=== PATIENT | female | born 1980 | race Caucasian/White ===

== ENCOUNTER 2022-08-24 05:14 | Emergency (ER) | payer BC, OTHER ==
[2022-08-24 05:21] VITALS: TEMP 98.9
[2022-08-24] MEDS ORDERED: SODIUM CHLORIDE 0.9% 1,000 ML IV STA (06:06)
[2022-08-24] MEDS ORDERED: SODIUM CHLORIDE 0.9% 500 ML 500 ML IV STA (06:06)
[2022-08-24] MEDS ORDERED: ONDANSETRON 4 MG/2 ML VIAL IVP STA (06:06)
[2022-08-24 06:36] LABS: Basophils % (A) 0 %; Eosinophils # (A) 0.1 k/uL (0-0.7); Eosinophils % (A) 1 %; HCT 38.6 % (34.0-46.0); HGB 13.2 gm/dL (11.4-16.0); Lymphocytes # (A) 1.2 k/uL (1.0-4.8); Lymphocytes % (A) 10 %; MCH 29.5 pg (25.0-35.0); MCHC 34.2 g/dL (31.0-37.0); MCV 86.4 fL (80.0-100.0); Monocytes # (A) 0.5 k/uL (0-1.0); Monocytes % (A) 4 %; Neutrophils # (A) 9.7 k/uL (1.3-7.7); Neutrophils % (A) 83 %; Platelet Count 184 k/uL (150-450); RBC 4.47 m/uL (3.80-5.40); RDW 13.8 % (11.5-15.5); WBC 11.7 k/uL (3.8-10.6)
[2022-08-24 06:52] LABS: ALT 29 U/L (4-34); AST 14 U/L (14-36); African American GFR (CKD) >90 (>60 ml/min/1.73 sqM); Alkaline Phosphatase 65 U/L (38-126); Amylase 68 U/L (30-110); Anion Gap 12 mmol/L; Blood Urea Nitrogen 12 mg/dL (7-17); Calcium 8.7 mg/dL (8.4-10.2); Carbon Dioxide 23 mmol/L (22-30); Chloride 102 mmol/L (98-107); Glucose 107 mg/dL (74-99); Lipase 121 U/L (23-300); Non-African American GFR(CKD) >90 (>60 ml/min/1.73 sqM); Sodium 137 mmol/L (137-145); Total Bilirubin 0.7 mg/dL (0.2-1.3); Total Protein 6.5 g/dL (6.3-8.2)
[2022-08-24 06:57] LABS: Appearance,Urine Cloudy (Clear); Bacteria,Urine Rare /hpf; Bilirubin,Urine Negative (Negative); Blood,Urine Negative (Negative); Budding Yeast,Urine Few /hpf; Color,Urine Yellow; Glucose,Urine (UA) Negative (Negative); Ketones,Urine 1+ (Negative); Leukocyte Esterase,Urine Large (Negative); Mucus,Urine Few /hpf; Nitrite,Urine Negative (Negative); Protein,Urine 1+ (Negative); RBC,Urine 7 /hpf (0-5); Specific Gravity,Urine 1.024 (1.001-1.035); Squamous Epithelial Cell,Urine 37 /hpf (0-4); Urobilinogen,Urine <2.0 mg/dL (<2.0); WBC,Urine 39 /hpf (0-5)
[2022-08-24 07:29] VITALS: RESP 18
[2022-08-24] MEDS ORDERED: KETOROLAC 15 MG/ML 1 ML VIAL IVP STA (07:30)
--- NOTE | 2022-08-24 07:33 | ED ---
Abdominal Pain HPI - General Chief Complaint: Abdominal Pain Stated Complaint: abd pain Time Seen by Provider: 08/24/22 06:06 Source: patient, RN notes reviewed Mode of arrival: ambulatory Limitations: no limitations - History of Present Illness Initial Comments: 42-year-old female presents emergency Department chief complaint of left lower quadrant abdominal pain. Patient states that it started recently overnight. Patient states that nausea without vomiting no dysuria but has had some urinary frequency. Denies fevers or chills no chest pain or shortness of breath states that nothing really makes the pain feel better or worse at this time. No history kidney stone patient's had prior cholecystectomy no other abdominal surgeries denies any chance . - Related Data Previous Rx's Medication Instructions Recorded Amoxic-Pot Clav 875-125Mg 1 tab PO Q12HR #20 tab 08/24/22 [Augmentin 875-125] Ibuprofen [Motrin] 600 mg PO Q8HR PRN #20 tab 08/24/22 Allergies Allergy/AdvReac Type Severity Reaction Status Date / Time No Known Allergies Allergy Verified 08/24/22 05:21 Review of Systems ROS Statement: Those systems with pertinent positive or pertinent negative responses have been documented in the HPI. ROS Other: All systems not noted in ROS Statement are negative. Past Medical History Past Medical History: No Reported History History of Any Multi-Drug Resistant Organisms: None Reported Past Surgical History: No Surgical Hx Reported Past Psychological History: No Psychological Hx Reported Smoking Status: Never smoker Past Alcohol Use History: None Reported Past Drug Use History: None Reported General Exam Limitations: no limitations General appearance: alert, in no apparent distress Head exam: Present: atraumatic, normocephalic, normal inspection Eye exam: Present: normal appearance, PERRL, EOMI. Absent: scleral icterus, conjunctival injection, periorbital swelling Neck exam: Present: normal inspection. Absent: tenderness, meningismus, lymphadenopathy Respiratory exam: Present: normal lung sounds bilaterally. Absent: respiratory distress, wheezes, rales, rhonchi, stridor Cardiovascular Exam: Present: normal rhythm, tachycardia, normal heart sounds. Absent: systolic murmur, diastolic murmur, rubs, gallop, clicks GI/Abdominal exam: Present: soft, tenderness, normal bowel sounds. Absent: distended, guarding, rebound, rigid Back exam: Present: CVA tenderness (L). Absent: CVA tenderness (R) Neurological exam: Present: alert Skin exam: Present: warm, dry, intact, normal color. Absent: rash Course Vital Signs 08/24/22 08/24/22 05:18 07:28 Temperature 98.9 F Pulse Rate 129 H 103 H Respiratory 20 18 Rate Blood Pressure 119/80 100/70 O2 Sat by Pulse 99 96 Oximetry Medical Decision Making - Medical Decision Making 42-year-old presented from for left lower quadrant abdominal pain. Patient pain is very localized. Patient CT shows evidence of moderate diverticulitis with no perforation or abscess formation patient has mild leukocytosis. Patient was given offered admission for IV antibiotics, pain control versus going home. Patient does feel comfortable being discharged clear liquid diet, oral antibiotics. Return parameters were discussed. - Lab Data Result diagrams: 08/24/22 06:13 08/24/22 06:13 Lab Results 08/24/22 08/24/22 08/24/22 Range/Units 06:13 06:13 06:13 WBC 11.7 H (3.8-10.6) k/uL RBC 4.47 (3.80-5.40) m/uL Hgb 13.2 (11.4-16.0) gm/dL Hct 38.6 (34.0-46.0) % MCV 86.4 (80.0-100.0) fL MCH 29.5 (25.0-35.0) pg MCHC 34.2 (31.0-37.0) g/dL RDW 13.8 (11.5-15.5) % Plt Count 184 (150-450) k/uL MPV 10.0 Neutrophils % 83 % Lymphocytes % 10 % Monocytes % 4 % Eosinophils % 1 % Basophils % 0 % Neutrophils # 9.7 H (1.3-7.7) k/uL Lymphocytes # 1.2 (1.0-4.8) k/uL Monocytes # 0.5 (0-1.0) k/uL Eosinophils # 0.1 (0-0.7) k/uL Basophils # 0.0 (0-0.2) k/uL Sodium 137 (137-145) mmol/L Potassium 4.0 (3.5-5.1) mmol/L Chloride 102 (98-107) mmol/L Carbon Dioxide 23 (22-30) mmol/L Anion Gap 12 mmol/L BUN 12 (7-17) mg/dL Creatinine 0.75 (0.52-1.04) mg/dL Est GFR (CKD-EPI)AfAm >90 (>60 ml/min/1.73 sqM) Est GFR (CKD-EPI)NonAf >90 (>60 ml/min/1.73 sqM) Glucose 107 H (74-99) mg/dL Plasma Lactic Acid Sen 0.8 (0.7-2.0) mmol/L Calcium 8.7 (8.4-10.2) mg/dL Total Bilirubin 0.7 (0.2-1.3) mg/dL AST 14 (14-36) U/L ALT 29 (4-34) U/L Alkaline Phosphatase 65 (38-126) U/L Total Protein 6.5 (6.3-8.2) g/dL Albumin 4.0 (3.5-5.0) g/dL Amylase 68 (30-110) U/L Lipase 121 (23-300) U/L Urine Color Urine Appearance (Clear) Urine pH (5.0-8.0) Ur Specific [place] (1.001-1.035) Urine Protein (Negative) Urine Glucose (UA) (Negative) Urine Ketones (Negative) Urine Blood (Negative) Urine Nitrite (Negative) Urine Bilirubin (Negative) Urine Urobilinogen (<2.0) mg/dL Ur Leukocyte Esterase (Negative) Urine RBC (0-5) /hpf Urine WBC (0-5) /hpf Urine WBC Clumps (None) /hpf Ur Squamous Epith Cells (0-4) /hpf Urine Bacteria (None) /hpf Urine Mucus (None) /hpf Urine Yeast (Budding) (None) /hpf Urine HCG, Qual (Not Detectd) 08/24/22 08/24/22 Range/Units 06:20 06:20 WBC (3.8-10.6) k/uL RBC (3.80-5.40) m/uL Hgb (11.4-16.0) gm/dL Hct (34.0-46.0) % MCV (80.0-100.0) fL MCH (25.0-35.0) pg MCHC (31.0-37.0) g/dL RDW (11.5-15.5) % Plt Count (150-450) k/uL MPV Neutrophils % % Lymphocytes % % Monocytes % % Eosinophils % % Basophils % % Neutrophils # (1.3-7.7) k/uL Lymphocytes # (1.0-4.8) k/uL Monocytes # (0-1.0) k/uL Eosinophils # (0-0.7) k/uL Basophils # (0-0.2) k/uL Sodium (137-145) mmol/L Potassium (3.5-5.1) mmol/L Chloride (98-107) mmol/L Carbon Dioxide (22-30) mmol/L Anion Gap mmol/L BUN (7-17) mg/dL Creatinine (0.52-1.04) mg/dL Est GFR (CKD-EPI)AfAm (>60 ml/min/1.73 sqM) Est GFR (CKD-EPI)NonAf (>60 ml/min/1.73 sqM) Glucose (74-99) mg/dL Plasma Lactic Acid Sen (0.7-2.0) mmol/L Calcium (8.4-10.2) mg/dL Total Bilirubin (0.2-1.3) mg/dL AST (14-36) U/L ALT (4-34) U/L Alkaline Phosphatase (38-126) U/L Total Protein (6.3-8.2) g/dL Albumin (3.5-5.0) g/dL Amylase (30-110) U/L Lipase (23-300) U/L Urine Color Yellow Urine Appearance Cloudy H (Clear) Urine pH 6.0 (5.0-8.0) Ur Specific [place] 1.024 (1.001-1.035) Urine Protein 1+ H (Negative) Urine Glucose (UA) Negative (Negative) Urine Ketones 1+ H (Negative) Urine Blood Negative (Negative) Urine Nitrite Negative (Negative) Urine Bilirubin Negative (Negative) Urine Urobilinogen <2.0 (<2.0) mg/dL Ur Leukocyte Esterase Large H (Negative) Urine RBC 7 H (0-5) /hpf Urine WBC 39 H (0-5) /hpf Urine WBC Clumps Many H (None) /hpf Ur Squamous Epith Cells 37 H (0-4) /hpf Urine Bacteria Rare H (None) /hpf Urine Mucus Few H (None) /hpf Urine Yeast (Budding) Few H (None) /hpf Urine HCG, Qual Not Detected (Not Detectd) Disposition Clinical Impression: Acute diverticulitis Disposition: HOME SELF-CARE Condition: Stable Instructions (If sedation given, give patient instructions): Diverticulitis (ED), Diverticulitis Diet (ED) Additional Instructions: Please return to the Emergency Department if symptoms worsen or any other concerns. Prescriptions: Amoxic-Pot Clav 875-125Mg [Augmentin 875-125] 1 tab PO Q12HR #20 tab Ibuprofen [Motrin] 600 mg PO Q8HR PRN #20 tab PRN Reason: Pain Is patient prescribed a controlled substance at d/c from ED?: No Referrals: Nonstaff,Physician [Primary Care Provider] - 1-2 days Time of Disposition: 07:54
--- NOTE | 2022-08-24 07:40 | CT ---
EXAMINATION TYPE: CT abdomen pelvis wo con DATE OF EXAM: 08/24/2022 HISTORY: LLQ PAIN CT DLP: 588.7 mGycm. Automated Exposure Control for Dose Reduction was Utilized. TECHNIQUE: CT scan of the abdomen and pelvis is performed without oral or IV contrast. COMPARISON: NONE FINDINGS: Within the limitations of a non-contrast study, the following observations are made. LUNG BASES: Scattered small bilateral pulmonary nodules are seen measuring up to 6 mm in size. Noneme rgent follow-up advised. LIVER/GB: Cholecystectomy clips are seen. PANCREAS: No significant abnormality is seen. SPLEEN: No significant abnormality is seen. ADRENALS: No significant abnormality is seen. KIDNEYS: No renal calculi or hydronephrosis is present bilaterally. BOWEL: Slightly suboptimal evaluation without enteric contrast. No suspicious small or large bowel di latation is seen. Normal appearing appendix ascending from cecum lateral aspect right abdomen. Divert icula in the left and sigmoid colon with focal moderate to severe wall thickening left mid to distal colon having moderate to severe ill-defined fluid and fat stranding. No free air. No well-formed flui d collection or abscess identified. Slightly redundant sigmoid colon. GENITAL ORGANS: Slightly retroflexed uterus. LYMPH NODES: No greater than 1cm abdominal or pelvic lymph nodes are appreciated. OSSEOUS STRUCTURES: Mild disc space narrowing with vacuum disc phenomenon lumbosacral junction. OTHER: No significant additional abnormality is seen. IMPRESSION: CT findings consistent with moderate to severe but uncomplicated acute diverticulitis lef t mid to lower abdomen centered distal left colon as detailed above.
[2022-08-24] MEDS ORDERED: ACET/COD 300 MG/30 MG STARTER PACK 6 TAB BTL PO STA (07:54)
[2022-08-24] MEDS ORDERED: cefTRIAXone IN SWFI 1,000 MG/10 ML SYRINGE IVP STA (07:57)
[2022-08-24 09:17] VITALS: BP 107/81; PULSE 93
== END 2022-08-24 09:17 | disposition home or self-care (01) ==
LOC: EC 05:14
DX: K57.92 Diverticulitis of intestine, part unspecified, without perforation or abscess without bleeding (principal)
CPT/HCPCS: 36415; 80053; 82150; 83605; 83690; 85025; 81001; 81025; 87086; 74176; 99284; 96374; 96375 ×2; 96361 ×2; J2405; J0696; J1885

== ENCOUNTER → 2023-06-13 | Outpatient (CLI) | payer BC, OTHER ==
[2023-06-13 15:41] LABS: Basophils # (A) 0.02 X 10*3/uL (0.00-0.10); Basophils % (A) 0.2 %; Eosinophils # (A) 0.09 X 10*3/uL (0.04-0.35); Eosinophils % (A) 0.8 %; HCT 39.6 % (37.2-46.3); HGB 13.3 d/dL (12.0-15.0); Lymphocytes # (A) 1.98 X 10*3/uL (0.90-5.00); Lymphocytes % (A) 17.8 %; MCH 30.1 pg (27.0-32.0); MCHC 33.6 d/dL (32.0-37.0); MCV 89.6 FL (80.0-97.0); Mean Platelet Volume 12.4 FL (9.5-12.2); Monocytes # (A) 0.71 X 10*3/uL (0.20-1.00); Monocytes % (A) 6.4 %; NRBC Per 100 WBC 0 X 10*3/uL (0.00-0.01); Neutrophils # (A) 8.26 X 10*3/uL (1.80-7.70); Neutrophils % (A) 74.2 %; Platelet Count 192 X 10*3/uL (140-440); RBC 4.42 X 10*6/uL (4.10-5.20); RDW 14.8 % (11.5-14.5); WBC 11.13 X 10*3/uL (4.50-10.00)
[2023-06-13 15:53] LABS: Carbon Dioxide 23.6 mmol/L (21.6-31.8); Chloride 104 mmol/L (96-109); Glucose 87 mg/dL (70-110); Potassium 4.1 mmol/L (3.5-5.5); Sodium 138 mmol/L (135-145)
== END | disposition home or self-care (01) ==
LOC: LABPAT 10:37
PROVIDERS: ATTEND Obstetrics & Gynecology
DX: Z01.812 Encounter for preprocedural laboratory examination (principal); N94.6 Dysmenorrhea, unspecified; N93.8 Other specified abnormal uterine and vaginal bleeding; N80.00 Endometriosis of the uterus, unspecified
CPT/HCPCS: 36415; 80051; 82565; 82947; 84520; 85025; 86850; 86900; 86901; 87086

== ENCOUNTER 2023-06-21 05:33 | Day surgery (SDC) | payer BC, OTHER ==
[2023-06-14 10:10] VITALS: BMI 29.9
--- NOTE | 2023-06-20 10:25 | P.HPIHPCON ---
History of Present Illness H&P Date: 06/20/23 Chief Complaint: Abnormal uterine bleeding Ms. Luo is a 43 year old presenting for surgical management of abnormal uterine bleeding, adenomyosis, and dysmenorrhea. She had the Mirena IUD placed November of 2022 for heavy bleeding and still continues to have heavy pe riods every 2 weeks that can often last for 10 days. She also has severe pain during periods. Additionally, Ms. Luo has been in surveillance for a 4 centimeter complex right adnexal mass for which OVA-1 testing was low risk for malignancy. Periods have been this way for a while, for which she has previously seen Dr. Chung who did an endometrial biopsy in 2011 showing proliferative endometrial tissue negative for malignancy. Consent for Procedure: I have explained the operation/procedure to the patient, including the risks, benefits, side effects, alternative therapies (including not receiving the proposed treatment or service), the likelihood of the patient achieving his/her goals, and potential recuperation problems for the procedure/sedation/analgesia, as well as any blood products, if indicated. I also explained to the patient the risks, benefits and side effects of the alternatives, as well as the risks related to not receiving the proposed procedure, care, treatment, or services. Past Medical History Past Medical History: Cancer Additional Past Medical History / Comment(s): HEAVY, PAINFUL MENSES. CYST ON RT OVARY, SKIN CANCER History of Any Multi-Drug Resistant Organisms: None Reported Past Surgical History: Cholecystectomy Additional Past Surgical History / Comment(s): IUD, SKIN CA REMOVED FROM NOSE Past Anesthesia/Blood Transfusion Reactions: No Reported Reaction Smoking Status: Never smoker - Past Family History Mother Family Medical History: Cancer Sister(s) Family Medical History: Cancer Medications and Allergies Home Medications Medication Instructions Recorded Confirmed Type Liraglutide [Saxenda] 0.6 mg SQ DAILY 06/14/23 06/14/23 History Sertraline [Zoloft] 50 mg PO DAILY@1800 06/14/23 06/14/23 History busPIRone HCl [Buspar] 10 mg PO DAILY PRN 06/14/23 06/14/23 History Allergies Allergy/AdvReac Type Severity Reaction Status Date / Time No Known Allergies Allergy Verified 06/14/23 09:59 Surgical - Exam Focused physical exam is performed. This is a healthy-appearing female in no apparent distress. Breathing is non-labored. Abdomen is soft, non-tender, non- distended. Extremities are non-tender and non-edematous. Assessment and Plan Assessment: 43 year old with AUB-A, dysmenorrhea, and 4 centimeter complex right adneal mass (OVA-1 testing low risk for malignancy) who presents for surgical management with Robotic Assisted Total Laparoscopic Hsyterectomy, Bilateraly Salpingectomy, Right Cystectomy, and Cystoscopy with Possible Bilateral Oophorectomy, Possible Laparotomy. Plan: Risks, benefits, and alternatives to Robotic Assisted Total Laparoscopic Hsyterectomy, Bilateraly Salpingectomy, Right Cystectomy, and Cystoscopy with Possible Bilateral Oophorectomy, Possible Laparotomy were discussed with the patient including risk of bleeding (patient willing to accept a blood- transfusion if necessary), infection, damage to surrounding structures including bladder/bowels/ureters, and post-operative VTE. The patient understands these risks and desires to proceed with surgery. Time with Patient: Less than 30 (10 minutes)
[2023-06-21] MEDS ORDERED: LACTATED RINGERS 1,000 ML IV ONE (05:45)
[2023-06-21] MEDS ORDERED: ONDANSETRON 4 MG/2 ML VIAL ONE (05:58)
[2023-06-21 06:17] LABS: Glucose,Whole Blood 83 mg/dL (70-110)
[2023-06-21] MEDS ORDERED: DEXAMETHASONE SOD PHOSPHATE 4 MG/ML 1 ML VIAL IVP ONE (06:19)
[2023-06-21] MEDS ORDERED: LIDOCAINE 1% (10MG/ML) FOR IV START INTRADERMA PRN (06:46)
[2023-06-21] MEDS ORDERED: MIDAZOLAM 2 MG/2 ML VIAL IV PRN (06:46)
[2023-06-21] MEDS ORDERED: HYDROmorphone 0.5 MG/0.5 ML SYRINGE IVP PRN (06:46)
[2023-06-21] MEDS ORDERED: LACTATED RINGERS 1,000 ML IV SCH (06:46)
[2023-06-21] MEDS ORDERED: ONDANSETRON 4 MG/2 ML VIAL IVP ONE (06:46)
[2023-06-21] MEDS ORDERED: DEXAMETHASONE SOD PHOSPHATE 4 MG/ML 1 ML VIAL IV ONE (06:46)
[2023-06-21] MEDS ORDERED: MIDAZOLAM 2 MG/2 ML VIAL IVP ONE (07:21)
[2023-06-21] MEDS ORDERED: fentaNYL (PF) 50 MCG/ML 2 ML AMP ONE (07:35)
[2023-06-21] MEDS ORDERED: GLYCOPYRROLATE 0.2 MG/ML 2 ML VIAL ONE (07:35)
[2023-06-21] MEDS ORDERED: SODIUM CHLORIDE 0.9% (PF) 10 ML VIAL ONE (07:35)
[2023-06-21] MEDS ORDERED: ACETAMINOPHEN IV (For NPO) 1,000 MG/100 ML VIAL ONE (07:35)
[2023-06-21] MEDS ORDERED: LIDOCAINE 2% INJ 20 MG/ML (2 ML VIAL) ONE (07:35)
[2023-06-21] MEDS ORDERED: ROPIVACAINE 5 MG/ML 30 ML VIAL ONE (07:35)
[2023-06-21] MEDS ORDERED: NEOSTIGMINE 1 MG/ML 10 ML VIAL ONE (07:35)
[2023-06-21] MEDS ORDERED: ROCURONIUM 10 MG/ML (5 ML VIAL) IV ONE (07:35)
[2023-06-21] MEDS ORDERED: KETOROLAC 15 MG/ML 1 ML VIAL ONE (07:35)
[2023-06-21] MEDS ORDERED: PROPOFOL 10 MG/ML 20 ML VIAL IV ONE (07:35)
[2023-06-21] MEDS ORDERED: BUPIVACAINE (PF) 0.25% 30 ML VIAL SQ ONE (09:02)
[2023-06-21] MEDS ORDERED: SIMETHICONE 80 MG CHEWABLE PO PRN (09:17)
[2023-06-21] MEDS ORDERED: ONDANSETRON 4 MG/2 ML VIAL IVP PRN (09:17)
[2023-06-21] MEDS ORDERED: IBUPROFEN 600 MG TAB PO PRN (09:17)
--- NOTE | 2023-06-21 09:17 | P.ANPRN ---
Procedure Note - Anesthesia - Nerve Block Performed Bilateral Erector Spinae Single Time Out Performed: Yes (0720) Date of Procedure: 06/21/23 Procedure Start Time: : Procedure Stop Time: :33 Location of Patient: PreOp Indication: Acute Post-Operative Pain, Requested by Surgeon Sedation Type: Sedate with meaningful contact maintained Preparation: Sterile Prep, Sterile Dressing Position: Prone Catheter: None Needle Types: Pajunk Needle Gauge: 21 Ultrasound used to visualize needle placement: Yes Ultrasound used to observe medication spread: Yes Injectate: 0.5% Ropivacaine (see comment for volume) (20 mL of block solution injected on each side. Block solution containing 20 mL of 0.5% ropivacaine mixed with 20 ML of preservative-free normal saline.) Blood Aspirated: No Pain Paresthesia on Injection Noted: No Resistance on Injection: Normal Image Stored and Saved: Yes Events: Uneventful and Well Tolerated
--- NOTE | 2023-06-21 09:27 | P.PCN ---
Date of Procedure: 06/21/23 Preoperative Diagnosis: 1. Abnormal Uterine Bleeding 2. Adenomyosis 3. Dysmenorrhea 4. Right ovarian cyst Postoperative Diagnosis: 1. Abnormal Uterine Bleeding 2. Adenomyosis 3. Dysmenorrhea 4. Left ovarian cyst Procedure(s) Performed: Robotic Assisted Total Laparoscopic Hysterectomy, Bilateral Salpingectomy, Left Cystectomy, and Cystoscopy Implants: None Anesthesia: ELIZABETH Surgeon: Gissell Boykin Underwriting Manager #1: Ollie Strange Estimated Blood Loss (ml): 50 IV fluids (ml): 500 Urine output (ml): 100 (clear yellow) Pathology: other (cervix, uterus, bilateral fallopian tubes, left ovarian cyst wall) Condition: stable Disposition: observation Indications for Procedure: 43 year old with AUB-A, dysmenorrhea, and 4 centimeter complex right adneal mass (OVA-1 testing low risk for malignancy) who presents for surgical management with Robotic Assisted Total Laparoscopic Hsyterectomy, Bilateraly Salpingectomy, Right Cystectomy, and Cystoscopy with Possible Bilateral Oophorectomy, Possible Laparotomy. Risks, benefits, and alternatives to Robotic Assisted Total Laparoscopic Hsyterectomy, Bilateraly Salpingectomy, Right Cystectomy, and Cystoscopy with Possible Bilateral Oophorectomy, Possible Laparotomy were discussed with the patient including risk of bleeding (patient willing to accept a blood-transfusion if necessary), infection, damage to surrounding structures including bladder/bowels/ureters, and post-operative VTE. The patient understands these risks and desires to proceed with surgery. Operative Findings: Bulky, heterogenous appearing uterus. Ovarian cyst was actually found on the left, rather than the right. Decision was made to perform cystectomy on the left ovary given these findings. Otherwise, unremarkable pelvis. Normal-appearing liver. Appendix not visualized. On cystoscopy, there was no evidence of trauma or injury to the bladder wall and bilateral ureteral jets were visualized. Description of Procedure: Prior to the beginning of the procedure, the team paused to verify the patients identity, the procedure to be performed (in accordance with the consent,) and the correct side/site. The patient was positioned appropriately. All relevant images and results were properly labeled and displayed. We addressed antibiotic prophylaxis and fluids for irrigation as applicable to this patient. Any safety precautions were addressed. The patient was taken to the operating room where general anesthesia was induced without difficulty. She was then positioned in the dorsal lithotomy position in [facility]. Positioning included placing her arms at her sides. After the patient was placed in what was felt to be a neurologically safe position, deep Trendelenburg position was tested prior to the operative procedure, to ensure that she would not move on the operating table. The patient was then prepped and draped in the normal sterile fashion for a combined abdominovaginal surgery. A Tapia catheter was placed in the bladder for continuous drainage. Uterus was sounded to 9 cm. [employer] manipulator was placed in the uterus for manipulation. Attention was then placed to the abdomen. The normal length Veress needle was introduced into the abdominal cavity while tenting the abdominal wall. Low pressure was noted confirming appropriate placement. The abdomen was then insufflated to 15mmHg for the remainder of the case. The Veress needle was removed, and an 8 mm port was placed at the umbilical site under direct laparscopic visualization and there was no evidence of injury from the trocar placement. Visualization of the intraabdominal cavity showed normal pelvic anatomy without evidence of adhesions. The port sites for the remainder of the case were then measured out and placed under direct visualization. On the left side, one 8 mm robotic assist port and one 10 mm assist port were placed. On the right side, one 8 mm robotic port was placed. The [employer] robot was then brought to the operative field in a lateral docking style to the left of the patient and the robot was docked to the ports. All robotic instruments were brought into the pelvis under direct visualization with monopolar scissors in arm #3 and vessel sealer in arm #1. Bilateral ureters were visualized prior to starting the surgery. The right fallopian tube was grasped by the fimbriated end and was cauterized and cut sequentially to the level of the uterine cornua. The right uteroovarian ligement was cauterized and cut. The right round ligament was cauterized and cut. Broad ligament was opened and bladder flap created. This was repeated on the left side. The peritoneum of the bilateral broad ligaments was then taken down and monopolar cautery used to skeletonize the uterine arteries bilaterally. During the course of this dissection, the anterior leaf of the broad ligament was also taken down over the anterior aspect of the uterus and cervix to create a bladder flap. The bladder was then dissected off the cervix and upper vagina with the monopolar scissors and gentle blunt dissection. The bilateral uterine arteries were then cauterized and divided at the level of the internal cervical os. The monopolar cautery was used to incise the vaginal cuff. The uterus, along with the cervix was removed vaginally. Cuff was closed in with 0-Stratifix sutures. An additional 0-Vicryl figure of eight suture was placed along the cuff.Excellent hemostasis was noted at this time. A 70 degree cystoscopy was performed which confirmed no suture placement within the bladder, no trauma to the bladder. Good efflux was noted from both ureteric orifices. The robot was undocked from the trocars and brought out of the operative field. The remainder of the ports were removed, and the gas was allowed to escape. All skin incisions were infiltrated with lidocaine closed with 4-0 Monocryl and dermabond. Hemostasis was noted to be excellent throughout, and final sponge, instrument, and needle count was noted to be correct. The patient was moved back to the preoperative holding area in stable condition having tolerated the procedure well.
[2023-06-21 09:38] VITALS: TEMP 97
[2023-06-21 14:31] VITALS: BP 145/88; PULSE 79; RESP 18
[2023-06-22] MEDS ORDERED: ACETAMINOPHEN TAB 325 MG TAB PO PRN (09:18)
== END 2023-06-21 14:20 | disposition home or self-care (01) ==
LOC: OR 05:33
PROVIDERS: ATTEND Obstetrics & Gynecology
DX: D25.9 Leiomyoma of uterus, unspecified (principal); N83.202 Unspecified ovarian cyst, left side; N80.00 Endometriosis of the uterus, unspecified
CPT/HCPCS: 58571; 58662; 81025; 64999; 86900; 86901; 86850; 88307; J2250; J1100; J2710; J0690; J2405; J3010; J2795; J0131; J1885; J2704; J2001; J0665

== ENCOUNTER 2023-08-10 11:01 | Emergency (ER) | payer BC, OTHER ==
[2023-08-10 11:32] VITALS: RESP 18
[2023-08-10] MEDS ORDERED: BACITRACIN OINT 1 EACH PACKET TOPICAL ONE (12:32)
[2023-08-10] MEDS ORDERED: LIDOCAINE 1% INJ 10MG/ML (20 ML MDV) SQ ONE (12:32)
--- NOTE | 2023-08-10 14:15 | ED ---
General Adult HPI - General Chief complaint: Wound/Laceration Stated complaint: Lt arm injury Time Seen by Provider: 08/10/23 11:57 Source: patient Mode of arrival: ambulatory Limitations: no limitations - History of Present Illness Initial comments: 43-year-old female presents to the ED with a chief complaint of laceration. Patient states that she still he broke a picture frame this morning. States as she was cleaning the glass shards off the table glass shard fell onto her arm causing laceration to her arm. Tetanus was updated last year. No other complaints at this time. - Related Data Home Medications Medication Instructions Recorded Confirmed Liraglutide [Saxenda] 0.6 mg SQ DAILY 06/14/23 06/21/23 Sertraline [Zoloft] 50 mg PO DAILY@1800 06/14/23 06/21/23 busPIRone HCl [Buspar] 10 mg PO DAILY PRN 06/14/23 06/21/23 Previous Rx's Medication Instructions Recorded Acetaminophen Tab [Tylenol] 650 mg PO Q6H PRN #30 tab 06/21/23 Ibuprofen [Motrin] 600 mg PO Q6HR PRN #30 tab 06/21/23 oxyCODONE HCL [Roxicodone] 5 mg PO Q6HR PRN 3 Days #12 tab 06/21/23 polyethylene glycoL 3350 [Miralax] 17 gm PO DAILY PRN #527 gm 06/21/23 Allergies Allergy/AdvReac Type Severity Reaction Status Date / Time No Known Allergies Allergy Verified 08/10/23 11:29 Review of Systems ROS Statement: Those systems with pertinent positive or pertinent negative responses have been documented in the HPI. ROS Other: All systems not noted in ROS Statement are negative. Past Medical History Past Medical History: Cancer Additional Past Medical History / Comment(s): HEAVY, PAINFUL MENSES. CYST ON RT OVARY, SKIN CANCER History of Any Multi-Drug Resistant Organisms: None Reported Past Surgical History: Cholecystectomy, Hysterectomy Additional Past Surgical History / Comment(s): IUD, SKIN CA REMOVED FROM NOSE Past Anesthesia/Blood Transfusion Reactions: No Reported Reaction Past Psychological History: Anxiety, Depression Smoking Status: Never smoker Past Alcohol Use History: None Reported Past Drug Use History: Marijuana - Past Family History Mother Family Medical History: Cancer Sister(s) Family Medical History: Cancer General Exam Limitations: no limitations General appearance: alert, in no apparent distress Neck exam: Present: normal inspection Respiratory exam: Present: normal lung sounds bilaterally Cardiovascular Exam: Present: regular rate, normal rhythm GI/Abdominal exam: Present: soft Extremities exam: Present: other (-Sensation equal and intact in bilateral upper extremities. 2 small lacerations on the anterior aspect of the patient's left forearm. One measuring approximately 1 cm. The other measuring approximately 2 cm. No Foreign objects.) Neurological exam: Present: alert, oriented X3 Skin exam: Present: warm, dry Course Vital Signs 08/10/23 11:26 Temperature 98.3 F Pulse Rate 79 Respiratory 18 Rate Blood Pressure 134/88 O2 Sat by Pulse 99 Oximetry Procedures - Laceration Laceration #1 Site: upper extremity Size (cm): 1 Depth: simple, single layer Sedation/Analgesia: none Anesthesia Technique: local infiltration Amount (mls): 1 Size of Sutures: 5-0 Number of Sutures: 1 Technique: simple, interrupted Patient Tolerated Procedure: well, no complications Laceration #2 Site: upper extremity Size (cm): 2 Description: linear Depth: simple, single layer Anesthetic Used: lidocaine 1% Amount (mls): 2 Size of Sutures: 5-0 Number of Sutures: 4 Technique: simple, interrupted Patient Tolerated Procedure: well, no complications Medical Decision Making - Medical Decision Making Was pt. sent in by a medical professional or institution (CHINYERE Whatley, PLANNING ADVISOR, urgent care, hospital, or snf...) When possible be specific @ -No Did you speak to anyone other than the patient for history (EMS, parent, family, police, friend...)? What history was obtained from this source @ -No Did you review nursing and triage notes (agree or disagree)? Why? @ -I reviewed and agree with nursing and triage notes Were old charts reviewed (outside hosp., previous admission, EMS record, old EKG, old radiological studies, urgent care reports/EKG's, snf records)? Report findings @ -No old charts were reviewed Differential Diagnosis (chest pain, altered mental status, abdominal pain women, abdominal pain men, vaginal bleeding, weakness, fever, dyspnea, syncope, headache, dizziness, GI bleed, back pain, seizure, CVA, palpatations, mental health, musculoskeletal)? @ -Acute tendon injury, acute ligamentous injury. This not meant to be an all- inclusive list. EKG interpreted by me (3pts min.). @ -None X-rays interpreted by me (1pt min.). @ -None done CT interpreted by me (1pt min.). @ -None done U/S interpreted by me (1pt. min.). @ -None done What testing was considered but not performed or refused? (CT, X-rays, U/S, lab s)? Why? @ -None What meds were considered but not given or refused? Why? @ -None Did you discuss the management of the patient with other professionals (professionals i.e. DrMerlin, PA, PLANNING ADVISOR, lab, RT, psych nurse, social science instructor, project finance analyst, teacher, custody officer, case making machine operator)? Give summary @ -No Was smoking cessation discussed for >3mins.? @ -No Was critical care preformed (if so, how long)? @ -No Were there social determinants of health that impacted care today? How? (Homelessness, low income, unemployed, alcoholism, drug addiction, transportation, low edu. Level, literacy, decrease access to med. care, [place] [facility], rehab)? @ -No Was there de-escalation of care discussed even if they declined (Discuss DNR or withdrawal of care, Hospice)? DNR status @ -No What co-morbidities impacted this encounter? (DM, HTN, Smoking, COPD, CAD, Cancer, CVA, ARF, Chemo, Hep., AIDS, mental health diagnosis, sleep apnea, morbid obesity)? @ -None Was patient admitted / discharged? Hospital course, mention meds given and route, prescriptions, significant lab abnormalities, going to OR and other pertinent info. @ -Discharge 43-year-old female presenting with lacerations to her left arm after some shards of glass fell onto them from table above. Had 2 small lacerations noted on exam. Tetanus status up-to-date. Lacerations were repaired and covered with bacitracin. Further details please see procedure note. Discharged home in stable condition. Discussed return precautions with patient who verbalizes agreement. Undiagnosed new problem with uncertain prognosis? @ -No Drug Therapy requiring intensive monitoring for toxicity (Heparin, Nitro, Insulin, Cardizem)? @ -No Were any procedures done? @ -Yes, laceration repair Diagnosis/symptom? @ -Laceration left forearm Acute, or Chronic, or Acute on Chronic? @ -Acute Uncomplicated (without systemic symptoms) or Complicated (systemic symptoms)? @ -Uncomplicated Side effects of treatment? @ -No Exacerbation, Progression, or Severe Exacerbation? @ -No Poses a threat to life or bodily function? How? (Chest pain, [place], [place], pneumonia, PE, COPD, DKA, ARF, appy, cholecystitis, CVA, Diverticulitis, Homicidal, Suicidal, threat to staff... and all critical care pts) @ -No Disposition Clinical Impression: Laceration Disposition: HOME SELF-CARE Condition: Good Instructions (If sedation given, give patient instructions): Care For Your Stitches (ED) Additional Instructions: Please return to the Emergency Department if symptoms worsen or any other concerns. Please return in 10-14 days for suture removal or present to your PCP/urgent care. Monitor for signs of infection. Is patient prescribed a controlled substance at d/c from ED?: No Referrals: Kaylynn Shirley MD [Primary Care Provider] - 1-2 days Time of Disposition: 14:22
[2023-08-10 14:32] VITALS: BP 127/87; PULSE 82; TEMP 98.4
== END 2023-08-10 14:30 | disposition home or self-care (01) ==
LOC: EC 11:01
DX: S41.112A Laceration without foreign body of left upper arm, initial encounter (principal); S41.111A Laceration without foreign body of right upper arm, initial encounter; F41.9 Anxiety disorder, unspecified; F32.A Depression, unspecified; F17.290 Nicotine dependence, other tobacco product, uncomplicated; Z79.899 Other long term (current) drug therapy; W25.XXXA Contact with sharp glass, initial encounter
CPT/HCPCS: 99282; 12002; J2001